=== PATIENT | female | born 1965 | race African-American/Black ===

== ENCOUNTER 2019-03-02 23:38 | Emergency (ER) | payer OTHER ==
[~2019-03-02] VITALS: Ht 165.1 cm; Wt 83.9 kg
[2019-03-02 23:50] VITALS: BP 142/98
[2019-03-03] MEDS ORDERED: IBUPROFEN 600 MG TABLET PO ONE ×2 (00:28→00:30)
== END 2019-03-03 00:40 ==
LOC: ER 23:47
DX: M79.10 Myalgia, unspecified site (principal)

== ENCOUNTER 2019-03-17 14:37 | Emergency (ER) | payer OTHER ==
[~2019-03-17] VITALS: Ht 167.6 cm; Wt 73.9 kg
--- NOTE | 2019-03-17 14:50 | NUR ---
PATIENT ARRIVED AT UNIT BIB RA KEILA GUZMAN FROM [facility]. PATIENT A/O X 4. VERBALLY RESPONSIVE. NO ACUTE DISTRESS. WITH C/O NON RADIATING CHEST PAIN 30 MINS PRIOR TO ADMISSION. PATIENT CONNECTED TO MONITOR.
[2019-03-17 15:08] LABS: BASOPHILS % (AUTO) 0.6 % (0.0-2.0); EOSINOPHILS % (AUTO) 1.6 % (0.0-6.0); HEMATOCRIT 41 % (33-45); HEMOGLOBIN 13.5 g/dL (11.5-14.8); LYMPHOCYTES % (AUTO) 42.2 % (20.0-44.0); MEAN CORPUSCULAR HGB CONC 33 g/dl (31.0-36.0); MEAN CORPUSCULAR VOLUME 89 fL (82-100); MONOCYTES # (AUTO) 0.3 /CMM (0.1-1.30); MONOCYTES % (AUTO) 6.9 % (2.0-12.0); NEUTROPHILS # (AUTO) 2.3 /CMM (1.8-8.9); NEUTROPHILS % (AUTO) 48.7 % (43.0-81.0); PLATELET COUNT (AUTO) 199 /CMM (150-450); RED BLOOD CELL COUNT(AUTO) 4.58 MIL/uL (4.0-5.2); WHITE BLOOD COUNT (AUTO) 4.7 K/uL (4.3-11.0)
[2019-03-17 15:15] LABS: CALCIUM, SERUM 9.7 mg/dL (8.5-10.1); CARBON DIOXIDE 27 mmol/L (21-32); CHLORIDE 105 mmol/L (98-107); CREATININE 0.8 mg/dL (0.6-1.3); GLUCOSE 95 mg/dL (74-106); POTASSIUM 4.2 mmol/L (3.5-5.1); SODIUM SERUM 138 mmol/L (136-145); UREA NITROGEN, BLOOD 18 mg/dL (7-18)
[2019-03-17] MEDS ORDERED: IBUPROFEN 400 MG TABLET PO ONE (16:00)
[2019-03-17] MEDS ORDERED: IBUPROFEN 400 MG TABLET ONE (16:02)
--- NOTE | 2019-03-17 16:15 | NUR ---
IV removed. Catheter intact and site benign. Pressure and 4x4 applied to site. No bleeding noted. Written and verbal after care instructions given. Patient verbalizes understanding of instruction. Patient discharged in stable condition. ambulatory. no new skin breakdown. accompanied by 2 [employer] officers. aware
[2019-03-17 16:17] VITALS: BP 119/73
== END 2019-03-17 16:17 ==
LOC: ER 14:40
DX: R07.89 Other chest pain (principal)
CPT/HCPCS: 36415; 71045-TC; 80048-TC; 84484-TC; 85025-TC